=== PATIENT | male | born 1950 | race Asian ===

== ENCOUNTER 2018-02-06 12:58 | Outpatient (CLI) | payer BC ==
--- NOTE | 2018-02-06 14:32 | ULT ---
LIMITED ULTRASOUND RIGHT NECK: 02/06/2018 HISTORY: Palpable abnormality in the right side of the neck for eight weeks. The provided history indicates t he left side, but the palpable abnormality, according to the patient, is actually on the right side. FINDINGS: Multiple sonographic images are obtained of the right neck. There are several hypoechoic circumscrib ed masses seen at the right aspect of the neck, with color-flow evaluation demonstrating flow within these masses. The largest mass, in the region of the patient's palpable abnormality, measures 3.6 cm in maximal dimensions. A few smaller hypoechoic masses are seen, with the next largest mass measuri ng approximately 1.9 cm. A few hypoechoic nodules with echogenic areas centrally are also seen at th e right aspect of the neck, which demonstrate characteristics compatible with normal appearing lymph nodes. The larger hypoechoic masses within the right neck are likely related to abnormal and enlarge d lymph nodes. These lymph nodes are adjacent to the carotid artery and internal jugular vein. IMPRESSION: Multiple hypoechoic masses, right aspect of the neck, likely attributable to lymphadenopathy; however , CT scan of the neck with intravenous contrast is recommended. POS: [facility]
== END 2018-02-06 12:59 | disposition home or self-care (01) ==
LOC: SCSULT 12:58
PROVIDERS: ATTEND Family Medicine
DX: R59.9 Enlarged lymph nodes, unspecified (principal); R22.1 Localized swelling, mass and lump, neck
CPT/HCPCS: 76536

== ENCOUNTER 2018-02-19 08:22 | Outpatient (CLI) | payer BC ==
--- NOTE | 2018-02-19 12:46 | CT ---
CT SOFT TISSUE NECK CONTRAST ENHANCED: HISTORY: Right-sided submandibular mass for six weeks. TECHNIQUE: Contrast enhanced CT images of the soft tissue neck obtained. FINDINGS: Images demonstrate a well circumscribed mass posterior to the right submandibular gland. The dimensi on of this lesion measures 3.2 x 2.7 x 3.6 cm. There is a second smaller, deep cervical lymph node c last mass, measuring approximately 12 mm. The differential diagnosis for this includes an enlarged l ymph node, including possible lymphoma. There also appears to be some asymmetric soft tissue density in the right nasopharynx. This may repr esent a pharyngeal mucosal-based mass. Correlate with direct visualization. Lesions may include hamlet wannoma or a nasopharyngeal carcinoma with lymph node metastisis. No significant evidence of mass nec rosis seen. No other significant enlarged masses or lesions seen. IMPRESSION: Enlarged right retromandibular mass with a second right deep cervical enlarged mass. These may repre sent enlarged lymph nodes. The differential diagnosis includes lymphoma and nasopharyngeal carcinoma . POS: [facility]
== END 2018-02-19 08:23 | disposition home or self-care (01) ==
LOC: SCSCT 08:22
PROVIDERS: ATTEND Family Medicine
DX: R22.1 Localized swelling, mass and lump, neck (principal)
CPT/HCPCS: 70491

== ENCOUNTER 2018-03-14 08:21 | Outpatient (CLI) | payer BC ==
[2018-03-14] MEDS ORDERED: Gadobenate Dimeglumine 529 MG/1 ML (20ML VIAL) ONE (10:13)
--- NOTE | 2018-03-14 11:25 | MRI ---
MRI OF THE NECK: DATE: 03/14/2018. COMPARISON: 02/19/2018. 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 TECHNIQUE: Multiplanar, multisequence MR imaging of the neck obtained with and without contrast. FINDINGS: There is mild mucosal thickening involving the imaged maxillary sinuses bilaterally. The retroantral fat and parapharyngeal fat appears unremarkable bilaterally. Bilateral parotid and s ubmandibular glands demonstrate no intrinsic mass lesion. There is a round T2 hyperintense mass posterior to the right submandibular gland measuring 3.3 x 3.2 cm, most consistent with metastatic lymphadenopathy given patient's provided history of nasopharyngea l carcinoma. There is a 2nd lesion of similar signal characteristics on the right which measures 1.4 cm in AP dimension medial to the sternocleidomastoid muscle just below the axial level of the hyoid bone, suggesting an additional metastatic node within level III on the right. No lymphadenopathy is apparent on the left. A mucosal-based nasopharyngeal mass is suspected posteriorly/laterally on the right extending mediall y to a midline location, better assessed on recent CT examination. This mucosal-based posterolateral right-sided nasopharyngeal mass measures approximately 2.8 cm in craniocaudal dimension and up to ap proximately 2.5 cm in transverse dimension. No additional aerodigestive tract lesion seen. This le minh is better evaluation on recent CT examination. Imaged osseous structures demonstrate no acute findings. IMPRESSION: Mucosal-based posterolateral right-sided nasopharyngeal mass, as seen on recent CT examination, consi stent with the provided history of nasopharyngeal carcinoma. Two lesions are noted within the neck o n the right suggesting metastatic nodes, one within level II and one within level III. POS: [facility]
== END 2018-03-14 08:22 | disposition home or self-care (01) ==
LOC: MRI 08:21
PROVIDERS: ATTEND Internal Medicine Hematology & Oncology
DX: C11.1 Malignant neoplasm of posterior wall of nasopharynx (principal); R22.1 Localized swelling, mass and lump, neck
CPT/HCPCS: 70543; 71046; 93005; 93010; A9577

== ENCOUNTER 2018-03-14 14:51 | Outpatient (CLI) | payer BC ==
--- NOTE | 2018-03-14 16:00 | RAD ---
PA AND LATERAL CHEST: History: Pre op. FINDINGS: Heart size and mediastinum are within normal limits. The lungs are clear of infiltrates. No significa nt bony findings. IMPRESSION: No active intrathoracic disease. POS: [facility]
== END 2018-03-14 14:52 | disposition home or self-care (01) ==
LOC: LABBT 14:51
PROVIDERS: ATTEND Specialist
DX: Z01.818 Encounter for other preprocedural examination (principal); C11.9 Malignant neoplasm of nasopharynx, unspecified
CPT/HCPCS: 71046; 93005; 93010

== ENCOUNTER 2018-03-18 12:54 | Outpatient (CLI) | payer BC ==
--- NOTE | 2018-03-19 10:51 | PET ---
PET CT FROM VERTEX OF SKULL THROUGH MID THIGHS: INDICATION: History of nasopharyngeal carcinoma. RADIOPHARMACEUTICAL: 12.6 mCi F18-FDG IV. TECHNIQUE: PET CT images were obtained from the vertex of the skull through the mid thighs following introductio n of the radiopharmaceutical by IV. CT images were obtained for attenuation correction purposes only. Comparison made with CT of soft tissues of neck dated 02/19/18. FINDINGS: HEAD AND NECK: The asymmetric soft tissue density seen within the right posterolateral aspect of the nasopharynx abu tting near the region of the right torus tubarius demonstrates mild hypermetabolic uptake with peak u ptake of 4.44 and a mean uptake of 4.15. The extent of the mass lesion is better detailed on the cont rast enhanced CT exam. There are enlarged lymph nodes seen within right Level IIA and right Level III positions that show hy permetabolic activity. The right Level IIA enlarged lymph node has a peak activity of 8.2 and a mean activity of 7.94. The right Level III lymph node has a peak activity of 5.73 and a mean activity of 5 .41. No additional hypermetabolic lymphadenopathy is demonstrated. Some mild activity is seen within the posterior aspect of the oropharynx and near the base of the ton lizzette, likely related to some background activity. Dental amalgam limits evaluation of the oral cavity. THORAX: No hypermetabolic pulmonary nodule or pleural effusion is evident. ABDOMEN AND PELVIS: No hypermetabolic mass or lymphadenopathy is evident within the abdomen or pelvis. There are nonspeci fic punctate calcifications within the right aspect of the liver. There is a nonobstructing calculus within the left mid kidney measuring 7.0 mm. There is prostate enlargement measuring 5.9 cm. SKIN AND OSSEOUS STRUCTURES: No hypermetabolic skin or osseous lesion evident. There are small sclerotic lesions involving both fe moral heads and left hemipelvis, likely reflecting small bone islands. There is a small sclerotic les ion within the right posterior 11th rib without associated hypermetabolic activity suspicious for an additional bone island. IMPRESSION: 1. Abnormal PET CT. There is hypermetabolic soft tissue mass involving the right posterolateral aspe ct of the nasopharynx corresponding to the patient's known nasopharyngeal carcinoma. There is hyperme tabolic lymph node seen within right Level IIA and III position, consistent with hypermetabolic lymph node spread of disease. 2. No hypermetabolic mass or lymphadenopathy is seen within the chest, abdomen, pelvis, skin, or oss eous structures. POS: [facility]
== END 2018-03-18 12:55 | disposition home or self-care (01) ==
LOC: PET 12:54
PROVIDERS: ATTEND Radiology Radiation Oncology
DX: C11.9 Malignant neoplasm of nasopharynx, unspecified (principal); R94.8 Abnormal results of function studies of other organs and systems; J39.2 Other diseases of pharynx
CPT/HCPCS: 78815; A9552

== ENCOUNTER 2018-03-20 08:03 | Day surgery (SDC) | payer BC ==
[2018-03-14 15:11] VITALS: BMI 20.9
[2018-03-20] MEDS ORDERED: CEFAZOLIN 2 GM/50 ML BAG ONE (09:00)
[2018-03-20] MEDS ORDERED: Ketorolac Tromethamine 30 MG/ML VIAL ONE (09:00)
[2018-03-20] MEDS ORDERED: Lidocaine 1% (PF) 30 ML VIAL ONE (10:27)
[2018-03-20] MEDS ORDERED: Bupivacaine HCl 0.5%/Epinephrine 1:200,000/PF 30 ml Vial ONE (10:27)
[2018-03-20] MEDS ORDERED: Sodium Chloride 0.9% 10 ML ONE (10:27)
[2018-03-20] MEDS ORDERED: PROPOFOL 20 ML ONE (10:44)
[2018-03-20] MEDS ORDERED: Fentanyl 100 MCG/2 ML VIAL ONE (10:44)
[2018-03-20] MEDS ORDERED: Midazolam HCl 2 mg/2 ml Vial ONE (10:44)
--- NOTE | 2018-03-20 12:47 | RAD ---
PORTABLE CHEST: History: Mediport catheter placement. FINDINGS: Heart size and mediastinum within normal limits. A right sided Mediport catheter is present. Catheter tip overlies the superior vena cava. No signs of pneumothorax. The lungs are clear of infiltrates. IMPRESSION: Placement of right sided Mediport catheter. No signs of pneumothorax. POS: [facility]
[2018-03-20] MEDS ORDERED: PROPOFOL 200 MG/20 ML VIAL ONE (16:03)
--- NOTE | 2018-03-20 17:45 | OP ---
DATE OF PROCEDURE: 03/20/2018 PREOPERATIVE DIAGNOSIS: Nasopharyngeal cancer. POSTOPERATIVE DIAGNOSIS: Nasopharyngeal cancer. OPERATION PERFORMED: Placement of right subclavian low-profile power compatible MediPort. ANESTHESIA: Total intravenous anesthesia with local using 0.25% Marcaine with epinephrine. INDICATIONS: The patient is a 67-year-old male. He was recently diagnosed with malignancy. Chemotherapy was recommended. MediPort was requested for placement. DESCRIPTION OF OPERATION: Informed consent was obtained. The patient was taken to the operating room where total intravenous anesthesia was obtained with the patient in supine position. Right periclavicular area was prepped with ChloraPrep and draped in sterile fashion. Local anesthetic was infiltrated and a large-gauge needle was passed under the clavicle in the subclavian vein. Guidewire was passed through the needle and fluoroscopically confirmed to enter the superior vena cava. Additional local anesthetic was infiltrated and transverse incision was created based on needle insertion site. A subcutaneous pocket was dissected inferiorly. Introducer dilator was passed over the guidewire under fluoroscopic guidance. The guidewire and dilator were removed, and the catheter was passed through the introducer. The tip of the catheter was positioned at the atriocaval junction and the catheter was trimmed to the appropriate length and secured to the locking hub of the MediPort. The port was then placed in the subcutaneous pocket where it was secured to the pectoral fascia with 2 interrupted sutures of 3-0 Prolene. The incision was then closed in layers with 3-0 and 4-0 Monocryl. Additional local anesthetic was infiltrated. The port was cannulated with a Mckee needle and it aspirated blood freely and was flushed with heparinized saline. Dermabond was placed externally on the skin incision. There were no complications. Blood loss was negligible. The patient tolerated the procedure well and was taken to recovery room in stable condition. FINDINGS: A low-profile port was selected as he is thin. It was placed uneventfully into his right subclavian vein. He had normal anatomy internally and externally. There was essentially no blood loss and no complications. The patient tolerated the procedure well. Job ID: [id number]
== END 2018-03-20 12:40 | disposition home or self-care (01) ==
LOC: SDC 08:03
PROVIDERS: ATTEND Specialist
PROC: 0JH63WZ Insertion of Totally Implantable Vascular Access Device into Chest Subcutaneous Tissue and Fascia, Percutaneous Approach (ICD-10-PCS; principal; 2018-03-20)
DX: C11.9 Malignant neoplasm of nasopharynx, unspecified (principal); Z79.899 Other long term (current) drug therapy
CPT/HCPCS: 71045; C1788; J0131; J0670; J1642; J1885; J2001; J2250; J2704; J3010

== ENCOUNTER 2018-06-18 10:34 | Outpatient (CLI) | payer BC ==
--- NOTE | 2018-06-18 11:41 | CT ---
Contrast-enhanced CT images of soft tissue neck. HISTORY: Patient with nasopharyngeal carcinoma. Comparison made to previous exam from February 19, 2018. There is been interval placement of a right jugular Mediport catheter. Contrast-enhanced images of the soft tissue neck demonstrates significant reduction in the overall si ze of the right retropharyngeal mass. This appears to have essentially resolved. The fossa of Rosenmuller appears to be normal. No evidence of retropharyngeal lymphadenopathy seen. Previously noted right level 2 and level 3 lymph nodes have significantly reduced in size. Right-sided level 2 lymph node reversely measured 3.2 x 2.7 cm now is significantly decreased in size measuring 1.4 x 1.1 cm. The right sided level 3 lymph node previously measured 12 mm now measuring 4 mm. No other newly developed masses or lesions seen. IMPRESSION: significant reduction in size of the previously noted retropharyngeal mass as well as the right-sided lymph nodes.
== END 2018-06-18 10:35 | disposition home or self-care (01) ==
LOC: SCSCT 10:34
PROVIDERS: ATTEND Radiology Radiation Oncology
DX: C11.9 Malignant neoplasm of nasopharynx, unspecified (principal)
CPT/HCPCS: 70491

== ENCOUNTER 2018-07-31 08:29 | Outpatient (CLI) | payer BC ==
--- NOTE | 2018-07-31 11:33 | PET ---
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 Status post chemotherapy a nd radiation therapy. COMPARISON: 03/18/2018 TECHNIQUE: IV injection of F-18 fluorodeoxyglucose (FDG) dose: 12.2 mCi. PET scan and attenuation correction CT performed from skull base to proximal thighs. PET scan and attenuation correction CT thinner slices performed through head and neck. FINDINGS: SUV (standard uptake values) numbers given are maximum SUVs. QCLR used. On the previous close-up PET/CT of head and neck, there was soft tissue asymmetrical thickening at th e right side of the nasopharynx, including involvement of torus tubarius, with maximum SUV up to 6.6. Now, the SUV is 2.9, below the 3 SUV threshold. Previously, there was a very enlarged right level 2 lymph node with SUV of 12.6. That has now resolve d, and the SUV is similar to background, 2.3. Inferior to that, there was a right level 3 lymph node with SUV of 8.3. That has resolved, and the cu rrent SUV is that of background, 2.2. There are no other areas of increased FDG uptake in the rest of the neck, and none in the chest, abdo men, or pelvis. IMPRESSION: Complete response to therapy. Transcribed Date/Time: 07/31/2018 11:35 AM
== END 2018-07-31 08:30 | disposition home or self-care (01) ==
LOC: PET 08:29
PROVIDERS: ATTEND Radiology Radiation Oncology
DX: C11.9 Malignant neoplasm of nasopharynx, unspecified (principal)
CPT/HCPCS: 78815; A9552

== ENCOUNTER 2021-06-29 14:47 | Outpatient (CLI) | payer BC | END 2021-06-29 14:48 | disposition home or self-care (01) | LOC: BICRAD 14:47 | PROVIDERS: ATTEND Radiology Radiation Oncology | DX: Z08 Encounter for follow-up examination after completed treatment for malignant neoplasm (principal); Z85.818 Personal history of malignant neoplasm of other sites of lip, oral cavity, and pharynx | CPT/HCPCS: 71046 ==